=== PATIENT | female | born 1950 ===

== ENCOUNTER 2019-06-04 09:13 | Inpatient (IN) | payer MEDICARE ==
[~2019-06-04] VITALS: Ht 152.4 cm; Wt 48.0 kg
[2019-06-04 11:16] LABS: GLUCOSE,POINT OF CARE 91 MG/DL (70-110)
[2019-06-04 13:07] LABS: BASOPHILS % (AUTO) 0.5 % (0.0-2.0); EOSINOPHILS % (AUTO) 1.9 % (1.0-6.0); HEMATOCRIT 42.4 % (36-46); HEMOGLOBIN 13.3 g/dL (12.0-16.0); LYMPHOCYTES # (AUTO) 3.3 K/uL (1.0-4.8); LYMPHOCYTES % (AUTO) 36.4 % (22.0-44.0); MEAN CORPUSCULAR HEMOGLOBIN 27.4 pg (26.0-34.0); MEAN CORPUSCULAR HGB CONC 31.4 G/dL (31.0-37.0); MEAN CORPUSCULAR VOLUME 87 fL (80-100); MONOCYTES # (AUTO) 0.6 K/uL (0.1-1.0); MONOCYTES % (AUTO) 7.1 % (2.0-9.0); NEUTROPHILS # (AUTO) 4.9 K/uL (1.8-7.7); NEUTROPHILS % (AUTO) 54.1 % (40.0-70.0); PLATELET COUNT (AUTO) 275 K/uL (150-450); RED BLOOD CELL COUNT(AUTO) 4.86 MIL/uL (4.00-5.20); RED CELL DISTRIBUTION WIDTH 13.9 % (11.5-14.5)
[2019-06-04 13:44] LABS: ANION GAP 10 mmol/L (8-16); CALCIUM, TOTAL 9.4 mg/dL (8.8-10.5); CARBON DIOXIDE 26 mmol/L (22-29); CHLORIDE 103 mmol/L (98-107); CREATININE 0.72 mg/dL (0.60-1.30); GLOMERULAR FILTR. RATE CALC > 60 mL/min (>60); GLUCOSE,RANDOM 105 mg/dL (70-110); POTASSIUM 4.4 mmol/L (3.5-5.1); SODIUM SERUM 139 mmol/L (136-145); UREA NITROGEN, BLOOD 19 mg/dL (7-18)
[2019-06-04 13:48] LABS: ALANINE AMINOTRANSFERASE 24 U/L (12-78); ALBUMIN 4.1 g/dL (3.4-5.0); ALKALINE PHOSPHATASE 97 U/L (46-116); ASPARTATE AMINOTRANSFERASE 32 U/L (15-37); BILIRUBIN,TOTAL 0.6 mg/dL (0.1-1.0); TOTAL PROTEIN, SERUM 7.9 g/dL (6.4-8.2)
[2019-06-04 14:21] LABS: BILIRUBIN,URINE NEGATIVE (NEGATIVE); GLUCOSE, URINE (UA) NEGATIVE (NEGATIVE); KETONES,URINE NEGATIVE (NEGATIVE); LEUKOCYTE ESTERASE ,URINE TRACE (NEGATIVE); NITRATE,URINE NEGATIVE (NEGATIVE); OCCULT BLOOD,URINE NEGATIVE (NEGATIVE); PH,URINE 6.5 (5.0-8.0); PROTEIN,URINE NEGATIVE (NEGATIVE); UROBILINOGEN,URINE 0.2 mg/dL (<=1.0)
[2019-06-04 14:25] LABS: APPEARANCE,URINE HAZY (CLEAR)
[2019-06-04] MEDS ORDERED: ZOLPIDEM TARTRATE 5 MG TABLET PO PRN (14:30)
[2019-06-04] MEDS ORDERED: ONDANSETRON HCL 4 MG/2 ML VIAL IVP PRN (14:30)
[2019-06-04] MEDS ORDERED: ACETAMINOPHEN 325 MG TABLET PO PRN (14:30)
[2019-06-04] MEDS ORDERED: BISACODYL 10 MG RECTAL RECTAL SUPPOSITORY PR PRN (14:30)
[2019-06-04] MEDS ORDERED: MAGNESIUM HYDROXIDE SUSPENSION 30 ML UDCUP PO PRN (14:30)
[2019-06-04] MEDS ORDERED: HYDROCODONE/ACETAMINOPHEN 5-325 MG TABLET PO PRN (14:30)
[2019-06-04] MEDS ORDERED: MORPHINE SULFATE 2 MG/ML SYRINGE IVP PRN (14:30)
[2019-06-04] MEDS ORDERED: SODIUM CHLORIDE 0.9% 500 ML IV ONE (14:30)
[2019-06-04 14:39] LABS: AMPHET/METH SCREEN,URINE NEGATIVE (NEGATIVE); BARBITURATE SCREEN, URINE NEGATIVE (NEGATIVE); BENZODIAZEPINES SCREEN,URINE NEGATIVE (NEGATIVE); CANNABINOID SCREEN,URINE NEGATIVE (NEGATIVE); COCAINE SCREEN,URINE NEGATIVE (NEGATIVE); METHADONE SCREEN, URINE NEGATIVE (NEGATIVE); OPIATE SCREEN,URINE NEGATIVE (NEGATIVE)
[2019-06-04 14:40] LABS: BACTERIA,URINE Moderate /HPF (None Seen); RBC,URINE None Seen /HPF (0-2); SQUAMOUS EPITHELIAL CELL,UR Moderate /LPF (None Seen)
[2019-06-04 14:45] LABS: PHENCYCLIDINE SCREEN,URINE NEGATIVE (NEGATIVE)
[2019-06-04] MEDS: AmLODIPine BESYLATE 5 MG TABLET PO SCH (16:26)
[2019-06-04] MEDS: HEPARIN SODIUM,PORCINE 5,000 UNITS/ML VIAL SQ SCH ×2 (16:47→23:45)
[2019-06-04 16:55] LABS: GLUCOSE,POINT OF CARE 102 MG/DL (70-110)
[2019-06-04] MEDS ORDERED: DEXTROSE 5%-0.45% SODIUM CHL 1,000 ML IV ONE (17:00)
[2019-06-04] MEDS ORDERED: DEXTROSE 50%-WATER 25 GM/50 ML SYRINGE IVP PRN (17:00)
[2019-06-04] MEDS ORDERED: INSULIN LISPRO 100 UNITS/ML SQ PRN (17:00)
[2019-06-04 18:07] VITALS: BP 169/90
[2019-06-04 20:07] VITALS: BP 161/76
[2019-06-04] MEDS: DOCUSATE SODIUM 100 MG CAPSULE PO SCH (22:06)
[2019-06-04 23:35] LABS: GLUCOMETER DEV NAME(LOC) 6N.2; GLUCOSE,POINT OF CARE 134 MG/DL (70-110)
[2019-06-04 23:38] VITALS: BP 171/76
[2019-06-04] MEDS: CloNIDine HCL 0.1 MG TABLET PO PRN (23:45)
[2019-06-05 04:05] VITALS: BP 132/52
[2019-06-05 07:22] VITALS: BP 136/73
[2019-06-05 08:10] LABS: GLUCOMETER DEV NAME(LOC) 6N.2; GLUCOSE,POINT OF CARE 125 MG/DL (70-110)
[2019-06-05] MEDS: FAMOTIDINE 20 MG TABLET PO SCH (08:46)
[2019-06-05] MEDS: AmLODIPine BESYLATE 5 MG TABLET PO SCH (08:47)
[2019-06-05] MEDS: HEPARIN SODIUM,PORCINE 5,000 UNITS/ML VIAL SQ SCH ×3 (08:47→23:20)
[2019-06-05] MEDS: DOCUSATE SODIUM 100 MG CAPSULE PO SCH ×2 (08:47→19:58)
[2019-06-05] MEDS ORDERED: PANTOPRAZOLE SODIUM 40 MG DR TABLET PO SCH (09:00)
[2019-06-05 11:15] VITALS: BP 151/70
[2019-06-05 15:05] LABS: GLUCOMETER DEV NAME(LOC) 6N.1; GLUCOSE,POINT OF CARE 107 MG/DL (70-110)
[2019-06-05 15:20] VITALS: BP 146/68
[2019-06-05 19:00] LABS: GLUCOMETER DEV NAME(LOC) 6N.1; GLUCOSE,POINT OF CARE 106 MG/DL (70-110)
[2019-06-05 20:00] VITALS: BP 159/78
[2019-06-05] MEDS: CloNIDine HCL 0.1 MG TABLET PO PRN (23:25)
[2019-06-05 23:30] VITALS: BP 187/87
[2019-06-06 00:55] LABS: GLUCOMETER DEV NAME(LOC) 6N.1; GLUCOSE,POINT OF CARE 110 MG/DL (70-110)
[2019-06-06 05:00] VITALS: BP 134/72
[2019-06-06] MEDS: FAMOTIDINE 20 MG TABLET PO SCH (05:18)
[2019-06-06 07:53] VITALS: BP 108/76
[2019-06-06] MEDS: HEPARIN SODIUM,PORCINE 5,000 UNITS/ML VIAL SQ SCH ×3 (08:07→23:43)
[2019-06-06] MEDS: DOCUSATE SODIUM 100 MG CAPSULE PO SCH ×2 (08:07→19:41)
[2019-06-06 11:45] VITALS: BP 156/82
[2019-06-06 12:21] LABS: GLUCOMETER DEV NAME(LOC) 6N.1; GLUCOSE,POINT OF CARE 123 MG/DL (70-110)
[2019-06-06 12:21] LABS: GLUCOMETER DEV NAME(LOC) 6N.1; GLUCOSE,POINT OF CARE 96 MG/DL (70-110)
[2019-06-06] MEDS: AmLODIPine BESYLATE 5 MG TABLET PO SCH (12:31)
[2019-06-06 15:24] VITALS: BP 166/89
[2019-06-06 18:40] LABS: GLUCOMETER DEV NAME(LOC) 6N.1; GLUCOSE,POINT OF CARE 147 MG/DL (70-110)
[2019-06-06 20:02] VITALS: BP 141/73
[2019-06-06 20:31] LABS: GLUCOMETER DEV NAME(LOC) 6N.1; GLUCOSE,POINT OF CARE 97 MG/DL (70-110)
[2019-06-07 00:20] VITALS: BP 152/81
[2019-06-07 05:00] VITALS: BP 162/80
[2019-06-07] MEDS: FAMOTIDINE 20 MG TABLET PO SCH (05:38)
[2019-06-07 06:26] LABS: GLUCOMETER DEV NAME(LOC) 6N.1; GLUCOSE,POINT OF CARE 118 MG/DL (70-110)
[2019-06-07] MEDS: DOCUSATE SODIUM 100 MG CAPSULE PO SCH (07:46)
[2019-06-07] MEDS: HEPARIN SODIUM,PORCINE 5,000 UNITS/ML VIAL SQ SCH (07:46)
[2019-06-07] MEDS: AmLODIPine BESYLATE 5 MG TABLET PO SCH (07:46)
[2019-06-07 08:15] VITALS: BP 174/89
[2019-06-07 12:15] LABS: GLUCOMETER DEV NAME(LOC) 6N.1; GLUCOSE,POINT OF CARE 123 MG/DL (70-110)
== END 2019-06-07 16:00 | DRG 291 ==
LOC: EMS 09:15 → 6N 16:53
PROVIDERS: ADMIT Internal Medicine; ATTEND Internal Medicine
DX: I11.0 Hypertensive heart disease with heart failure (principal); E43 Unspecified severe protein-calorie malnutrition; E86.0 Dehydration; E11.9 Type 2 diabetes mellitus without complications; F43.23 Adjustment disorder with mixed anxiety and depressed mood; I50.9 Heart failure, unspecified; Z51.5 Encounter for palliative care; Z74.01 Bed confinement status; Z89.511 Acquired absence of right leg below knee; Z89.512 Acquired absence of left leg below knee; Z88.0 Allergy status to penicillin; Z88.1 Allergy status to other antibiotic agents; Z79.899 Other long term (current) drug therapy; I69.392 Facial weakness following cerebral infarction; Z93.1 Gastrostomy status; Z68.20 Body mass index [BMI] 20.0-20.9, adult
CPT/HCPCS: 51701; 87086; 96365; G0480; J1644